=== PATIENT | female | born 1985 ===

== ENCOUNTER 2025-01-03 09:29 | Outpatient (CLI) | payer OTHER ==
[~2025-01-03 09:29] MED LIST: NOXIFOL-D32500 UNIT; ZEPBOUND10 MG/0.5 SQ
== END 2025-01-03 14:23 | disposition home or self-care (01) ==
LOC: EKG 09:29
PROVIDERS: ATTEND General Practice
DX: Z01.818 Encounter for other preprocedural examination (principal)

== ENCOUNTER 2025-01-05 10:16 | Day surgery (SDC) | payer OTHER ==
[2024-12-02 09:29] VITALS: BP 127/58
[2024-12-02 09:47] LABS: BASO % 0.7 % (0.1-1.2); EOS # 0.28 (0.04-0.54); EOS % 6.2 % (0.7-7.0); HEMATOCRIT 42.2 % (34.1-44.9); HEMOGLOBIN 13.6 g/dL (11.2-15.7); LYMPH # 1.24 (1.18-3.74); LYMPH % 27.3 % (19.3-53.1); MEAN CORPUSCULAR HEMOGLOBIN 26.4 pg (25.6-32.2); MONO # 0.34 (0.24-0.82); MONO % 7.5 % (4.7-12.5); NEUT # 2.64 (1.56-6.13); NEUT % 57.9 % (34.0-71.1); PLATELET COUNT 324 K/uL (163-369); RED BLOOD COUNT 5.16 M/uL (3.93-5.22)
[2024-12-02 09:53] LABS: URINE APPEARANCE Clear; URINE BILIRRUBIN Negative (NEGATIVE); URINE BLOOD Negative; URINE COLOR Yellow; URINE GLUCOSE Negative (NEGATIVE); URINE KETONE Negative (NEGATIVE); URINE LEUKOCYTE Negative; URINE NITRATE Negative; URINE PROTEIN Negative (NEGATIVE); URINE UROBILINOGEN 0.2 E.U./dl
[2024-12-02 09:57] LABS: URINE EPITHELIAL CELLS 16.4 uL (0.0-38.8); URINE RBC 5.7 uL (0.0-20.8); URINE WBC 3.9 uL (0.0-23.2)
[2024-12-02 10:37] LABS: PARTIAL THROMBOPLASTIN TIME 28.8 SECONDS (22.0-34.0); PROTHROMBIN TIME 10.9 SECONDS (9.0-11.5)
[2024-12-02 10:48] LABS: ALBUMIN 3.5 gm/dL (3.4-5.0); BILIRUBIN TOTAL 0.58 mg/dL (0.3-1.2); CALCIUM 8.9 mg/dL (8.5-10.1); CREATININE SERUM 0.58 mg/dL (0.55-1.02); GFR 116.34; GLOBULINA 3.5 G/DL (2.4-3.5); POTASSIUM 4.1 mEq/L (3.5-5.1)
[2025-01-03 10:06] VITALS: BP 126/79
[~2025-01-05] VITALS: Ht 162.6 cm; Wt 117.5 kg
[2025-01-05] MEDS ORDERED: POVIDONE-IODINE 118 ML BOTT TOP ONE (12:40)
[2025-01-05] MEDS ORDERED: FAMOTIDINE/PF 20 MG/2 ML VIAL IV ONE (16:30)
[2025-01-05] MEDS ORDERED: ONDANSETRON HCL 2 MG/ML VIAL IV PRN (16:30)
[2025-01-05] MEDS ORDERED: KETOROLAC TROMETHAMINE 30 MG VIAL IV ONE (16:30)
== END 2025-01-05 19:40 | disposition home or self-care (01) ==
LOC: CIR.AMB 10:16
PROVIDERS: ATTEND General Practice
DX: N85.02 Endometrial intraepithelial neoplasia [EIN] (principal)